=== PATIENT | female | born 1990 | race Caucasian/White ===

== ENCOUNTER 2018-01-29 17:24 | Emergency (ER) | payer BC ==
[~2018-01-29] VITALS: Ht 162.6 cm; Wt 59.0 kg
--- NOTE | 2018-01-29 17:31 | NUR ---
patient ambulated to er bed 2
[2018-01-29 17:34] VITALS: BP 132/85
--- NOTE | 2018-01-29 17:35 | NUR ---
27Y/F ACCOMPANIED BY SPOUSE C/O SUDDEN ONSET OF PALPITATION, SOB AFTER EATING X TODAY MIDSTERNAL ACHE WITH THROAT DISCOMFORT; ADDS ITS HAPPEN BEFORE BUT HAS NOT BEEN EVALUATED BY A MD FOR THIS ISSUE DENIES DRUG , CAFFEINE, ENERGY DRINK USES HX---DENIES RX--- CONTROL
--- NOTE | 2018-01-29 17:38 | NUR ---
URINE CUP HANDED TO PT
--- NOTE | 2018-01-29 17:40 | NUR ---
Patient being evaluated by physician at bedside.
--- NOTE | 2018-01-29 18:19 | NUR ---
ACCOMPANIED BY SPOUSE C/O SUDDEN ONSET OF PALPITATION, SOB AFTER EATING X TODAY MIDSTERNAL ACHE WITH THROAT DISCOMFORT ---ADDS ITS HAPPEN BEFORE BUT HAS NOT BEEN EVALUATED BY A MD FOR THIS ISSUE DENIES DRUG , CAFFEINE, ENERGY DRINK USES HX---DENIES RX--- CONTROL
[2018-01-29 18:39] VITALS: BP 116/60
--- NOTE | 2018-01-29 18:39 | NUR ---
Patient discharged with v/s stable. Written and verbal after care instructions given and explained. Patient alert, oriented and verbalized understanding of instructions. Ambulatory with steady gait. All questions addressed prior to discharge. ID band removed. Patient advised to follow up with PMD. Rx of CARDIZEM given. Patient educated on indication of medication including possible reaction and side effects. Opportunity to ask questions provided and answered.
== END 2018-01-29 18:39 | disposition home or self-care (01) ==
LOC: MED 17:24
DX: I47.1 Supraventricular tachycardia (principal)
CPT/HCPCS: 93005; 99283